=== PATIENT | female | born 2005 | race Caucasian/White ===

== ENCOUNTER 2024-05-26 17:59 | Emergency (ER) | payer SELFPAY ==
[2024-05-26 18:31] VITALS: BP 115/71; PULSE 85; RESP 18; TEMP 36.6; O2SAT 99
--- NOTE | 2024-05-26 18:44 | ED.NAVMDI ---
HPI - Nausea/Vomiting/Diarrhea General Chief complaint: Nausea/Vomiting/Diarrhea Stated complaint: Vomiting/Congestion Time Seen by Provider: 05/26/24 18:43 Source: patient Mode of arrival: ambulatory Limitations: no limitations History of Present Illness HPI Narrative: Patient presents to clinic today with vomiting for the last 4 days, vomiting 2-4 times per day and is able to keep some food/ fluids down in between episodes. She does state that she has had LUQ abdominal pain on and off for the last 4 months. Patient's boyfriend tested positive for chlamydia yesterday, and she would like to be tested for gonorrhea, chlamydia, and trichomonas, as this is our capabilities. Currently, patient does not have any symptoms. Related Data Allergies Allergy/AdvReac Type Severity Reaction Status Date / Time No Known Allergies Allergy Verified 05/26/24 18:37 Review of Systems Review of Systems: CONSTITUTIONAL: Denies body aches, fever, chills, or sweats. EYES: Denies visual changes, redness, or discharge. ENT: Denies rhinorrhea, congestion, sore throat, or otalgia. CARDIOVASCULAR: Denies chest pain, palpitations, or edema. RESPIRATORY: Denies cough or dyspnea. GASTROINTESTINAL: Reports intermittent abdominal pain to LUQ, nausea, and vomiting. No diarrhea or CVA Tenderness. GENITOURINARY: Denies dysuria or hematuria. SKIN: Denies rash, itching, or wounds. MUSCULOSKELETAL: Denies back pain, joint pain, or myalgia. NEUROLOGIC: Denies headache, numbness, tingling, or weakness. PSYCH: Denies depression or anxiety. All systems reviewed & are unremarkable except as noted in HPI and below PMFSH Comments At time of signature, I have reviewed and agree with nursing past medical, surgical, social and family history unless otherwise noted. Please see nursing chart for further information. There is no relevant family history pertinent to the presenting complaint. Exam Narrative: GENERAL: Well-appearing, well-nourished, and in no acute distress. HEAD: Normocephalic, atraumatic. EYES: PERRLA, conjunctivae clear, and EOMI. ENT: Mucous membranes moist. NECK: Supple. No lymphadenopathy CHEST: Speaks in full sentences. No respiratory distress. HEART: Regular rate and rhythm. ABDOMEN: Soft, flat, nondistended. No guarding, rebound tenderness, or rigid. No pulsatile masses. Bowel sounds x4 No organomegaly. Negative Watkins?s sign. No periumbilical tenderness. No Supra public tenderness or distension. Good femoral pulses bilaterally. No hernia noted. No scars or surface trauma. : Deferred exam. SKIN: Warm, dry, no rash. NEURO: Alert and oriented x3. PSYCH: Normal mood and affect Course Course Emergency Course: 1909 Patient states that her nausea has improved after 8mg ODT Zofran Successful PO challenge with water. Level of Care: Express Care Visit Vital Signs Vital signs: Vital Signs Temperature 98 F 05/26/24 18:31 Pulse Rate 85 05/26/24 18:31 Respiratory Rate 18 05/26/24 18:31 Blood Pressure 115/71 05/26/24 18:31 Pulse Oximetry 99 05/26/24 18:31 Temperature 98 F 05/26/24 18:31 Pulse Rate 85 05/26/24 18:31 Respiratory Rate 18 05/26/24 18:31 Blood Pressure 115/71 05/26/24 18:31 Pulse Oximetry 99 05/26/24 18:31 reviewed. MDM - Nausea/Vomiting/Diarrhea MDM Narrative Medical decision making narrative: Discussed physical exam findings. Zofran for nausea. No red flag symptoms for abdominal pain. Urine sent for Gonorrhea, chlamydia, and Trichomonas. Doxy/ Flagyl sent to pharmacy for prophalactic treatment. Patient wishes to be treated for STI. Advised supportive measures and ED precautions. Pt is appropriate for outpatient treatment and follow up. Advised to follow up with GI for persistent abdominal pain. Differential Diagnosis Differential diagnosis: Likely food poisoning and gastroenteritis Critical Care Time Critical Care Time Critical Care Time: No Discharge Plan Discharge Clinical Impression: Exposure to sexually transmitted disease (STD), Epigastric abdominal pain Nausea & vomiting Qualifiers: Vomiting type: unspecified Qualified Code(s): R11.2 - Nausea with vomiting, unspecified Patient Disposition: Home Condition: Stable Instructions: Sexually Transmitted Diseases (ED), Acute Nausea and Vomiting (ED), Abdominal Pain (ED) Additional Instructions: Your urine has been sent off to test for gonorrhea, chlamydia, and trichomonas infections. You will be called if any of your tests come back positive. These tests can take up to 3 days to come back. You have been given Rocephin today to treat for gonorrhea. Prescriptions for Flagyl and Doxycycline have been sent to your pharmacy to cover for trichomonas and chlamydia. If your tests come back positive you should need no further treatment. You will need to notify any partners that you have so they can be tested and treated. To avoid reinfection, you are advised to abstain from sexual intercourse for 7 days (and any symptoms have resolved) to prevent transmission. If your tests come back negative and you are still experiencing symptoms, please follow-up with your PCP or Obgyn for further evaluation and treatment. If your symptoms worsen to include fever, abdominal pain, or back pain, please go to the hospital immediately. Take Zofran as prescribed. If vomiting persist even with medication, please go to the ER for further evaluation. Follow-up with your primary care for your persistent abdominal pain. Patient Language: Sinhala Prescriptions: New doxycycline hyclate 100 mg capsule 100 mg PO BID 7 Days Qty: 14 0RF metronidazole 500 mg tablet 500 mg PO Q12H 7 Days Qty: 14 0RF ondansetron 8 mg tablet,disintegrating 8 mg PO Q4-6H PRN (Reason: nausea and vomiting) Qty: 15 0RF Follow-up/Referrals: PHYSICIAN,CORDUROY BRUSHER OPERATOR [Primary Care Provider] - London Salgado MD [Physician] - Time of Disposition: 19:26
[2024-05-26] MEDS: ONDANSETRON HCL ODT 4 MG TABLET 8 MG PO (18:55)
[2024-05-26] MEDS: cefTRIAXone 500 MG, LIDOCAINE 1% LOCAL INJ 1 ML IM (19:21)
[2024-05-27 19:31] LABS: Trichomonas Vag PCR DETECTED (NOT DETECTE)
[2024-05-27 20:04] LABS: Chlamydia trachomatis NOT DETECTED (NOT DETECTE); Neisseria gonorrhoeae PCR NOT DETECTED (NOT DETECTE)
== END 2024-05-26 19:43 | disposition home or self-care (01) ==
DX: R11.2 Nausea with vomiting, unspecified (principal); R10.13 Epigastric pain; Z11.3 Encounter for screening for infections with a predominantly sexual mode of transmission; Z20.2 Contact with and (suspected) exposure to infections with a predominantly sexual mode of transmission
CPT/HCPCS: 87491; 87591; 87661; 96372; 99213; A9270; G0463; J0696; J2003